=== PATIENT | female | born 1995 | race African-American/Black ===

== ENCOUNTER 2017-09-10 11:57 | Emergency (ER) | payer OTHER ==
[2017-09-10 14:16] LABS: ABSOLUTE BASOPHIL COUNT 0 /CUMM (0.0-0.2); ABSOLUTE EOSINOPHIL COUNT 0 /CUMM (0.0-0.7); ABSOLUTE GRANULOCYTE CT 8.4 /CUMM (1.4-6.5); ABSOLUTE LYMPH COUNT 0.9 /CUMM (1.2-3.4); ABSOLUTE MONOCYTE COUNT 0.6 /CUMM (0.10-0.60); BASOPHIL % 0.1 % (0.0-2.0); EOSINOPHIL % 0.2 % (0-5); HEMATOCRIT 41.3 % (37-47); MEAN CORPUSCULAR HGB 32.9 PG (27.0-31.0); MEAN CORPUSCULAR HGB CONC 32.7 G/DL (33.0-37.0); MEAN CORPUSCULAR VOLUME 100.4 FL (81.0-99.0); MEAN PLATELET VOLUME 8.4 FL (7.4-10.4); PLATELET COUNT 221 /CUMM (130-400); RBC DISTRIBUTION WIDTH 11.8 % (11.5-14.5); RED BLOOD CELL CT 4.12 /CUMM (4.20-5.40); WHITE BLOOD CELL COUNT 9.9 /CUMM (4.8-10.8)
[2017-09-10 14:41] LABS: GRANULOCYTE % 84.3 % (42.2-75.2)
--- NOTE | 2017-09-10 16:35 | ED PSYCHIATRIC COMPLAINT ---
See Addendum History of Present Illness General Chief Complaint: Psychiatric Related Complaint Stated Complaint: BIBA +SI, PSY Source: patient, old records, EMS, friend Exam Limitations: clinical condition Vital Signs & Intake/Output Vital Signs & Intake/Output Vital Signs Date Time Temp Pulse Resp B/P B/P Pulse O2 O2 Flow FiO2 Mean Ox Delivery Rate 09/10 2211 98.7 102 18 125/76 100 Room Air 09/10 2155 98.7 102 18 125/76 100 /08 1744 88 19 116/68 99 Room Air 09/10 1400 98.0 70 8 124/72 98 Room Air 09/10 1322 99 28 158/70 97 Room Air Triage Note: PT BIBA W/ POLICE CUSTODY. PER COMMUNITY FACILITATOR, THEY RECEIVED A CALL FROM PTS FRIEND STATING THEY RECEIVED A TEXT FROM THE PT THAT SHE WAS GOING TO KILL HERSELF. ON POLICE ARRIVAL, THERE WAS AN EXTENSION CORD HANGING PER OFFICER. PT IS UNCOOPERATIVE DURING TRIAGE Triage Nurses Notes Reviewed? yes Onset: Just prior to arrival Duration: hour(s):, constant, continues in ED Timing: recent history Severity: severe Associated Symptoms: anxiety, impaired concentration, suicidal ideation LMP (ages 10-50): unknown : No Patient currently breastfeeds: No HPI: Prior to admission patient was texting her friends she was going to kill herself. An extension cord was found hanging. The police were called and she was found on the roof of the home. She became very agitated and verbally abusive and threatening requiring chemical and physical restraints. Grandmother reports she was recently diagnosed with bipolar disorder noncompliant with medications. (Yossi Gonzalez MD) Past History Travel History Traveled to [place] past 21 day No Medical History Any Pertinent Medical History? see below for history Psychiatric: bipolar disease Isolation History: Standard Surgical History Surgical History: non-contributory Psychosocial History What is your primary language Mohawk Tobacco Use: Refused to answer ETOH Use: 6 Illicit Drug Use: UTD Family History Hx Contributory? No (Yossi Gonzalez MD) Review of Systems Review of Systems Constitutional: Reports: no symptoms. EENTM: Reports: no symptoms. Respiratory: Reports: no symptoms. Cardiovascular: Reports: no symptoms. GI: Reports: no symptoms. Genitourinary: Reports: no symptoms. Musculoskeletal: Reports: no symptoms. Skin: Reports: no symptoms. Neurological/Psychological: Reports: see HPI, confusion, depressed, emotional problems. Hematologic/Endocrine: Reports: no symptoms. Immunologic/Allergic: Reports: no symptoms. All Other Systems: Reviewed and Negative (Yossi Gonzalez MD) Physical Exam Physical Exam General Appearance: well developed/nourished, alert, awake, anxious, severe distress Head: atraumatic, normal appearance Eyes: Bilateral: normal appearance, PERRL, EOMI. Ears, Nose, Throat: normal pharynx, normal ENT inspection, hearing grossly normal Neck: normal inspection, supple, full range of motion, no midline tenderness Respiratory: normal breath sounds, chest non-tender, no respiratory distress, quiet respiration, lungs clear Cardiovascular: regular rate/rhythm, normal peripheral pulses, norml femoral pulses equa Gastrointestinal: normal bowel sounds, soft, non-tender, no organomegaly Extremities: normal range of motion, no ligament instability Neurological/Psychiatric: no motor/sensory deficits, awake, agitated, alert, anxious, engineer process II-XII nml as tested Appearance/Memory/Insight: disheveled, impaired insight Behavoir/Eye Contact/Speech: avoids eye contact, belligerent, uncooperative, refused to answer, threatening eye contact Thoughts/Hallucinations: no apparent hallucination Skin: intact, normal color, diaphoresis SAD PERSONS SAD PERSONS Response Value Depression/Hopelessness? yes 2 Previous Attempts/Psych Care yes 1 Rational Thinking Loss? yes 2 Single//? yes 1 Social Support? has support 0 Stated Future Intent? yes 2 Total 8 SAD PERSONS Done? yes (Yossi Gonzalez MD) Progress Differential Diagnosis: drug intoxication, drug overdose, drug withdrawal, electrolyte abnormality, hypoglycemia Plan of Care: Orders Procedure Date/time Status Continuous Observation Monitor 09/10 1610 Active ED CRISIS PSYCH CONSULT 09/10 1439 Active Restraint- Discontinue 09/10 1410 Active Continuous Observation Monitor 09/10 1214 Active URINE DRUG SCREEN FOR ER ONLY 09/10 1214 Complete HUMAN BETA HCG SCREEN 09/10 1214 Complete ETHANOL 09/10 1214 Complete COMPREHENSIVE METABOLIC PANEL 09/10 1214 Complete CBC WITHOUT DIFFERENTIAL 09/10 121 Complete Restraint- Behavioral (Order) 09/10 1212 Active Laboratory Tests 09/10/17 1410: Anion Gap 14, Estimated GFR > 60, BUN/Creatinine Ratio 10.0, Glucose 97, Calcium 10.2, Total Bilirubin 0.5, AST 46 H, ALT 24, Alkaline Phosphatase 51, Total Protein 7.4, Albumin 4.6, Globulin 2.8, Albumin/Globulin Ratio 1.6, Total Beta HCG NEGATIVE, CBC w Diff NO MAN DIFF REQ, RBC 4.12 L, MCV 100.4 H, MCH 32.9 H , MCHC 32.7 L, RDW 11.8, MPV 8.4, Gran % 84.3 H, Lymphocytes % 9.2 L, Monocytes % 6.2, Eosinophils % 0.2, Basophils % 0.1, Absolute Granulocytes 8.4 H, Absolute Lymphocytes 0.9 L, Absolute Monocytes 0.6, Absolute Eosinophils 0, Absolute Basophils 0, Serum Alcohol < 10.0 09/10/17 1402: Urine Opiates Screen < 100, Methadone Screen 45, Barbiturate Screen < 60, Ur Phencyclidine Scrn < 6.00, Amphetamines Screen < 100, U Benzodiazepines Scrn < 85, Urine Cocaine Screen < 50, Urine Cannabis Screen > 80.00 H Hand-Off Endorsed To: Timmy Canela MD Endorsed Time: 1899 Pending: consult (Yossi Gonzalez MD) Departure Departure Disposition: STILL A PATIENT Condition: Stable Clinical Impression Primary Impression: Suicidal ideations Referrals: Patient Has No Primary Care Dr (PCP/Family) Departure Forms: Customer Survey General Discharge Information (Yossi Gonzalez MD) Departure Comments pt to be signed out to dr. gonzalez at 09/11/17, 7am. (Timmy Canela MD)
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
[2017-09-11 11:56] VITALS: BP 138/75
== END 2017-09-11 12:14 ==
LOC: ERH 11:57
PROVIDERS: Emergency Medicine
DX: R45.851 Suicidal ideations (principal); R45.1 Restlessness and agitation; F31.9 Bipolar disorder, unspecified; Z91.14 Patient's other noncompliance with medication regimen
CPT/HCPCS: 80307; 96372; 99291; G0463; G0480